=== PATIENT | female | born 1955 | race American Indian/Alaskan Native ===

== ENCOUNTER 2016-09-28 13:45 | Day surgery (SDC) | payer OTHER ==
[~2016-09-28 13:45] MED LIST: ANCEF/STERILE WATER 2 GM/20 ML IV NR
[2016-09-28] MEDS ORDERED: NACL BACTERIOSTATIC INFILTRATI ONE (14:38)
--- NOTE | 2016-09-28 14:47 | Anesthesia Day of Surgery ---
Anesthesia Day of Surgery - Day of Surgery Patient Examined: Yes Patient H&P Reviewed: Yes Patient is NPO: Yes
--- NOTE | 2016-09-28 14:47 | Anesthesia Consultation ---
Anesthesia Consult and Med Hx - Airway Anesthetic Teeth Evaluation: Good ROM Head & Neck: Inadequate (chronic neck pain) Mental/Hyoid Distance: Adequate Mallampati Class: Class II Intubation Access Assessment: Probably Good - Pulmonary Exam CTA: Yes - Cardiac Exam Cardiac Exam: RRR - Pre-Operative Health Status ASA Pre-Surgery Classification: ASA2 Proposed Anesthetic Plan: General - Pulmonary Hx Smoking: Yes (STOPPED X 2YRS- 3 PER DAY X 20 YRS) Hx Sleep Apnea: No ([place] PRE SCREEN LOW RISK) - Cardiovascular System Hx Hypertension: Yes (ONLY WITH PAIN) - Central Nervous System Hx Back Pain: Yes (CHRONIC NECK AND BACK PAIN TO ANA ARMS) - Endocrine Hx Renal Disease: No (renal stone) - Other Systems Hx Alcohol Use: Yes (WINE QD) Hx Cancer: No
[2016-09-28] MEDS ORDERED: VERSED IV NR (14:49)
[2016-09-28] MEDS ORDERED: NACL 0.9% 1000 ML 1,000 ML IV SCH (14:49)
[2016-09-28] MEDS ORDERED: PEPCID IV NR (14:49)
[2016-09-28] MEDS ORDERED: DILAUDID IV PRN (14:49)
[2016-09-28] MEDS ORDERED: DIPRIVAN 10 MG/ML IV ONE (15:07)
[2016-09-28] MEDS ORDERED: DILAUDID ONE (15:07)
[2016-09-28] MEDS ORDERED: XYLOCAINE MPF 2% ONE (15:10)
[2016-09-28] MEDS ORDERED: DECADRON ONE (15:56)
[2016-09-28] MEDS ORDERED: ZOFRAN ONE (15:57)
[2016-09-28] MEDS ORDERED: OMNIPAQUE (300 MG) IR ONE (16:07)
[2016-09-28] MEDS ORDERED: WATER FOR IRRIG STERILE IR ONE ×2 (16:07→16:08)
[2016-09-28] MEDS ORDERED: ROBINUL ONE (16:13)
--- NOTE | 2016-09-28 16:37 | Short Stay Summary ---
Short Stay Documentation Date of service: 09/28/16 - History H&P: obtained from office - Allergies and Medications Current Medications: Allergies No Known Allergies Allergy (Verified 09/27/16 11:31) Home Medications Medication Instructions Recorded Confirmed Last Taken Type Cyclobenzaprine [Flexeril] 10 mg PO TID PRN 09/27/16 09/27/16 09/27/16 History oxyCODONE /ACETAMINOPHEN [Percocet 1 tab PO Q6HR PRN 09/27/16 09/27/16 09/27/16 History 5/325] traZODone [Desyrel] 50 mg PO QHS 09/27/16 09/28/16 09/26/16 History Active Medications Cefazolin Sodium (Ancef/Sterile Water 2 Gm/20 Ml) 2 gm IV PREOP NR Stop: 09/28/16 23:59 Famotidine (Pepcid) 20 mg IV PREOP NR Stop: 09/28/16 23:59 Last Admin: 09/28/16 15:02 Dose: 20 mg Hydromorphone HCl (Dilaudid) 0.5 mg IV Q5MIN PRN PRN Reason: Pain, Moderate (4-6) Stop: 09/28/16 23:59 Last Admin: 09/28/16 15:00 Dose: 0.5 mg Sodium Chloride (Nacl 0.9% 1000 Ml) 1,000 mls @ 125 mls/hr IV DIRECT CLARISA Stop: 09/28/16 23:59 Last Admin: 09/28/16 14:59 Dose: 125 mls/hr Midazolam HCl (Versed) 2 mg IV PREOP NR Stop: 09/28/16 23:59 Last Admin: 09/28/16 15:05 Dose: 2 mg - Brief post op/procedure progress note Date of procedure: 09/28/16 Pre-op diagnosis: rt distal stone 7mm Post-op diagnosis: same Procedure: cysto, rpg, rt ureteroscopy, laser stent with external string (6x24cm) Anesthesia: CONSTANTIN Surgeon: YULI GOLDSMITH Estimated blood loss: none Pathology: list (stone with doctor) Condition: stable - Hospital course Hospital course: cipro on chart pain medication per pain mgmt doctor - Disposition Condition at discharge: Stable Disposition: DISCHARGED TO HOME OR SELFCARE Short Stay Discharge Plan Follow up with: PRIMARY CARE, [Primary Care Provider] - 7 Days
[2016-09-28 18:02] VITALS: BP 111/68
--- NOTE | 2016-09-28 20:22 | Operative Report ---
PREOPERATIVE DIAGNOSIS: Right distal ureteral stone, (7 mm). POSTOPERATIVE DIAGNOSIS: Right distal ureteral stone, (7 mm). PROCEDURE: Cystoscopy, bilateral retrograde pyelograms, right ureteroscopy, holmium laser lithotripsy, basket stone extraction, 6 [place] 24 cm double-J stent placement with an external string. SURGEON: Rajnedra Cruz M.D. ANESTHESIA: General. ESTIMATED BLOOD LOSS: Minimal. FLUIDS: Crystalloid. COMPLICATIONS: No complications. INDICATIONS: This patient is a 60-year-old female presented to the office with a history of right flank pain. CT of abdomen and pelvis last month revealed a 7 mm distal stone. She had a previous CT done at an outside institution with a 7 mm right renal stone. She had a procedure and they were unable to retrieve it at that time. She is also on pain management for cervical spine fusion and receives her pain meds per her pain management physician. Discussed options with the patient and her . Written information was given and they agreed to proceed with surgical intervention. DESCRIPTION OF PROCEDURE: The patient was taken to the operative suite, placed in the supine position. After adequate general anesthesia, placed in a dorsal lithotomy position, prepped and draped in a sterile fashion. Pancystourethroscopy was performed with 22 [place] Storz cystoscope. No urethral or bladder abnormalities. Both ureteral orifices in normal position. No tumors or stones were noted in the bladder. A primer charging tool setter film did reveal a calcification in the distal aspect of the right ureter. Bilateral retrograde pyelograms were obtained with an 8 [place] Early catheter and 8 mL of contrast. No filling defects or obstruction on the left. Right side, obvious filling defect approximately 2 cm from the ureteral orifice consistent with a stone. Two 0.035 guidewires were placed under fluoroscopic guidance. Rigid ureteroscopy was performed. Stone could be visualized. Using a 200 micron holmium fiber starting at 4 acuña, laser lithotripsy was performed. The wide energy was turned up to 6. Adequate fragmentation could be appreciated. The larger fragment was extracted using a 3-[place] Mitzy basket and some of the residual fragments passed out as well as smaller fragments. A 6 [place] 24 cm double-J stent with an external string was left indwelling. It was placed under fluoroscopic guidance. The patient tolerated the procedure well. She was extubated and taken to recovery room in stable condition. She will go home. Pain meds per pain physician and Cipro. She will follow up in the office for stent removal. JOB# [id number] ENEIDA/NTS
--- NOTE | 2016-09-29 08:42 | Fluoroscopy Report ---
Retrograde pyelogram. History: Right ureteral stone. Findings: The left pelvicalyceal system and ureter are normal. Clinical Research Analyst film reveals an ovoid shaped calcification in the right lower quadrant which is demonstrated to lie within the ureter after injection of contrast into the right ureter. The ureter proximal to the stone is not opacified. A laser device was used to break up the stone at which a stone basket retrieval device was used. On the final image, a double-J ureteral stent is demonstrated in satisfactory position.
== END 2016-09-28 17:50 | disposition home or self-care (01) ==
LOC: OR 13:45
PROVIDERS: ATTEND Urology
DX: N20.1 Calculus of ureter (principal); I10 Essential (primary) hypertension; Z87.891 Personal history of nicotine dependence; Z72.89 Other problems related to lifestyle
CPT/HCPCS: 52356; 74420; A4217; C1758; C1769; C2617; J0690; J1100; J1170; J2250; J2405; J2704; J7030; Q9967